=== PATIENT | female | born 1990 | race Caucasian/White ===

== ENCOUNTER → 2019-11-23 | Outpatient (CLI) | payer SELFPAY ==
[~2019-11-23] VITALS: Ht 165 cm; Wt 134.0 kg
[~2019-11-23] MED LIST: CATHETER FLUSH 10 ML SYR IV PRN; CRV6.25T GT; FAMO20TA5 PO; MGCT300B PO; NITR100C3 PO; ONDA8TAB9 PO; PHEN200T27 PO; POLY119P PO; REGADENOSON 0.4 MG/5 ML SYR (LEXISCAN) IV ONE; TRAM50TA2 PO
[2019-11-23 13:00] VITALS: BP 120/80
[2019-11-23 13:18] VITALS: BP 136/78
--- NOTE | 2019-11-23 17:13 | STRESS TEST ---
DATE OF SERVICE: 11/23/2019 RESTING AND POST REGADENOSON TECHNETIUM-99M TETROFOSMIN SPECT CT IMAGING ORDERING PHYSICIAN: Kisha Buck APRN PRIMARY PHYSICIAN: Dr. Barr. CLINICAL DIAGNOSIS: Shortness of breath. Baseline images were carried out after injection of 9.27 mCi of technetium-99 Tetrofosmin. This was followed by 0.4 mg regadenoson and 29 mCi of technetium-99m Tetrofosmin for stress imaging. The electrocardiogram showed sinus rhythm at baseline. It did not change significantly with regadenoson infusion. She noted some head discomfort following regadenoson infusion, which resolved in a few minutes. Overall, she tolerated the procedure well. Review of images at rest and following stress does not indicate any significant perfusion defects consistent with myocardial ischemia or infarction. Gated images showed normal global left ventricular systolic function with normal regional wall motion. Left ventricular ejection fraction is calculated to be 64%. Left ventricular end diastolic volume is 43 mL. TID is absent (1.05). CONCLUSIONS: 1. No evidence of any significant myocardial ischemia or infarction on this study. 2. Normal regional wall motion. 3. Normal global left ventricular systolic function with a calculated ejection fraction of 64%. 4. Normal left ventricular cavity size. Job ID: [id number] DocumentID: [id number] Dictated Date: 11/23/2019 15:34:40 [employer] Date: 11/23/2019 17:13:20 Dictated By: NEVILLE SALCIDO MD, MA, FACP, FACC,
== END ==
LOC: CARD 11:01
PROVIDERS: ATTEND Nurse Practitioner Family
DX: R06.00 Dyspnea, unspecified (principal); I34.0 Nonrheumatic mitral (valve) insufficiency
CPT/HCPCS: 36415; 78452; 84703; 93017